=== PATIENT | male | born 1945 | race Caucasian/White ===

== ENCOUNTER → 2023-09-16 09:02 | Outpatient (REF) | payer MEDICARE, OTHER, SELFPAY | LOC: WDC 09:02 | PROVIDERS: ATTENDING PHYSICIAN Nurse Practitioner Family; FAMILY PHYSICIAN Internal Medicine | DX: N63.21 Unspecified lump in the left breast, upper outer quadrant (principal); N63.11 Unspecified lump in the right breast, upper outer quadrant | CPT/HCPCS: 36415; 76642; 77062; 77066; 84146 ==

== ENCOUNTER → 2023-09-23 08:08 | Outpatient (REF) | payer MEDICARE, OTHER, SELFPAY | LOC: RAD 08:08 | PROVIDERS: ATTENDING PHYSICIAN Nurse Practitioner Family; FAMILY PHYSICIAN Internal Medicine | DX: R07.89 Other chest pain (principal) | CPT/HCPCS: 71046; 93005 ==

== ENCOUNTER → 2023-09-30 07:27 | Outpatient (REF) | payer MEDICARE, OTHER, SELFPAY | LOC: RCS 07:27 | PROVIDERS: ATTENDING PHYSICIAN Nurse Practitioner Family; FAMILY PHYSICIAN Internal Medicine | DX: N63.11 Unspecified lump in the right breast, upper outer quadrant (principal); N63.21 Unspecified lump in the left breast, upper outer quadrant; R07.89 Other chest pain | CPT/HCPCS: 93017; 93350 ==

== ENCOUNTER → 2023-10-27 06:55 | Outpatient (REF) | payer MEDICARE, OTHER, SELFPAY | LOC: RSP 06:55 | PROVIDERS: ATTENDING PHYSICIAN Nurse Practitioner Family; FAMILY PHYSICIAN Internal Medicine | DX: R93.89 Abnormal findings on diagnostic imaging of other specified body structures (principal); R05.3 Chronic cough; J44.9 Chronic obstructive pulmonary disease, unspecified | CPT/HCPCS: 94727; 94729; 88738; 94010 ==

== ENCOUNTER → 2023-11-12 07:24 | Outpatient (REF) | payer MEDICARE, OTHER, SELFPAY ==
[2023-11-12 08:15] LABS: % Basophils 0.9 % (0-2); % Eosinophils 5.2 % (0-6); % Immature Granulocytes 0.4 % (0-0.5); % Lymphocytes 27.4 % (20.5-51.1); % Monocytes 9.5 % (1.7-9.3); % Neutrophils 56.6 % (42.2-75.2); Absolute Basophils 0.1 10^3/uL (0-0.2); Absolute Eosinophils 0.4 10^3/uL (0-0.7); Absolute Lymphocytes 2.1 10^3/uL (1.2-3.4); Absolute Monocytes 0.7 10^3/uL (0.1-0.6); Absolute Neutrophils 4.3 10^3/uL (1.4-6.5); Hematocrit 41.1 % (39.0-52.0); Mean Corp Hgb Conc. 36.5 g/dL (33.0-37.0); Mean Corpuscular Hgb 32.2 pg (27.0-31.0); Mean Corpuscular Volume 88.2 fL (80.0-94.0); Mean Platelet Volume 9.6 fL (7.4-10.4); Nucleated Red Blood Cells % 0 % (-); Platelet Count 172 10^3/uL (130-400); Red Blood Cell Count 4.66 10^6/uL (4.70-6.10); Red Cell Dist. Width 11.9 % (11.5-14.5); White Blood Cell Count 7.7 10^3/uL (4.8-10.8)
[2023-11-12 08:20] LABS: Urine Albumin Negative (Neg - Trace); Urine Bilirubin Negative (Negative); Urine Character Clear (Clear); Urine Color Yellow; Urine Glucose Negative (Negative); Urine Ketone Negative (Negative); Urine Leukocyte Negative (Negative); Urine Nitrite Negative (Negative); Urine Occult Blood Negative (Negative); Urine Specific Gravity 1.025 (<1.030); Urine Urobilinogen Negative (Neg - 1+)
[2023-11-12 09:26] LABS: PSA, Total - Screen 3.11 ng/ml (0.0-4.0); TSH 1.67 uIU/ml (0.47-4.68)
[2023-11-12 10:02] LABS: HDL Cholesterol 37 mg/dl; LDL Cholesterol, Calculated 70 mg/dl; Total Cholesterol 120 mg/dl (50-199); Triglyceride 66 mg/dl (10-149); Very Low Density Lipoprotein 13 mg/dl (0-30)
[2023-11-12 11:03] LABS: Glycohemoglobin (HgbA1c) 5.5 % (4.0-5.6)
== END ==
LOC: REG 07:24
PROVIDERS: ATTENDING PHYSICIAN Internal Medicine
DX: I10 Essential (primary) hypertension (principal); R78.2 Finding of cocaine in blood; K21.9 Gastro-esophageal reflux disease without esophagitis; N40.1 Benign prostatic hyperplasia with lower urinary tract symptoms; R73.01 Impaired fasting glucose; Z12.5 Encounter for screening for malignant neoplasm of prostate
CPT/HCPCS: 36415; 80061; 81003; 83036; 84443; 85025; G0103

== ENCOUNTER → 2023-12-31 13:22 | Outpatient (REF) | payer MEDICARE, OTHER, SELFPAY | LOC: HWRAD 13:22 | PROVIDERS: ATTENDING PHYSICIAN Internal Medicine | DX: N50.812 Left testicular pain (principal) | CPT/HCPCS: 76870; 93976 ==

== ENCOUNTER → 2024-01-15 07:41 | Outpatient (REF) | payer MEDICARE, OTHER, SELFPAY | LOC: REG 07:41 | PROVIDERS: ATTENDING PHYSICIAN Specialist; FAMILY PHYSICIAN Internal Medicine | DX: N39.0 Urinary tract infection, site not specified (principal) | CPT/HCPCS: 87086 ==

== ENCOUNTER 2024-10-18 18:04 | Emergency (ER) | payer MEDICARE, OTHER, SELFPAY ==
[2024-10-18 18:09] VITALS: BP 147/76
[2024-10-18 18:29] LABS: Hematocrit 41.1 % (39.0-52.0); Hemoglobin 15.0 g/dL (13.0-18.0); Mean Corp Hgb Conc. 36.5 g/dL (33.0-37.0); Mean Corpuscular Volume 89.7 fL (80.0-94.0); Nucleated Red Blood Cells % 0 % (-); Platelet Count 151 10^3/uL (130-400); Red Cell Dist. Width 12.0 % (11.5-14.5)
[2024-10-18 18:38] LABS: ALT (SGPT) 35 U/L (0-50); AST (SGOT) 36 U/L (17-59); Albumin 4.1 g/dl (3.5-5.0); Alkaline Phosphatase 71 U/L (38-126); Blood Urea Nitrogen 22 mg/dl (9-20); Calcium 9.4 mg/dl (8.4-10.2); Carbon Dioxide 26 mmol/L (22-30); Chloride 110 mmol/L (98-107); Glucose 132 mg/dl (70-99); Potassium 4.7 mmol/L (3.5-5.1); Sodium 141 mmol/L (135-145); Total Protein 6.7 g/dl (6.3-8.2); eGFR > 60.00
[2024-10-18 18:49] LABS: Troponin I < 0.012 ng/ml
[2024-10-18 19:26] VITALS: BP 145/97
[2024-10-18 19:29] VITALS: BMI 29.9
[2024-10-18 20:00] VITALS: BP 119/69
--- NOTE | 2024-10-18 20:10 | ED.GENMED ---
History of Present Illness
General
Chief Complaint: Chest Pain
Time Seen by Provider: 10/18/24 20:09
History of Present Illness
History of Present Illness:
79-year-old male history of hypertension, elevated cholesterol presenting with chest pressure for the past few months worsening today prompting ED arrival. Patient states that he was seen in urgent care prior to arrival, had abnormal EKG was sent
to the emergency department for further evaluation. Patient denies nausea, vomiting, shortness of breath or leg swelling. Patient states that he was able to walk his typical 2 mile walk with no issues this morning. Patient states that chest pain
is nonradiating, nonexertional, nonpleuritic. Patient states is unrelated to food. Patient reports history of hiatal hernia, states that he is scheduled to have a endoscopy on 10/26.
Past History
Past History
ED Past Medical History: HTN, Hypercholesterolemia, Other (enlarged prostate) and Other (skin CA, diverticulitis, arthritis, anxiety)
ED Past Surgical History: Orthopedic
Social History
Tobacco: Non-smoker
Personal:
Living: with family
Employment: Retired
Phy Exam
Physical Exam
Physical Exam:
General: Alert, no acute distress
Head: NCAT
Eyes: clear conjunctiva
Neck: supple
Cardiac: regular rate and rhythm, no murmur
Lungs: clear to auscultation bilaterally. No wheezes, rales, or rhonchi. Speaking full unlabored sentences. No respiratory distress.
Abdomen: soft, nondistended nontender. No rebound or guarding.
MSK: no lower extremity edema bilaterally. No deformity
Skin: warm, dry
Neuro: Alert and oriented x3. no focal deficits
Scores
Heart Score for Chest Pain Patients
STEMI patient?: No
History: Slightly or Non-Suspicious
ECG: Normal
Age: >/= 65 years
Risk Factors: 1 or 2 Risk Factors
Troponin: </= Normal Limit
Heart Score for Chest Pain Patients: 3
Heart Score Risk: 2.5% MACE over next 6 weeks
Course
Orders/Labs/Results
Orders:
Orders
10/18/24 18:08
Electrocardiogram (*1) Urgent
Reason for Study: Chest Pain
10/18/24 18:09
EKG- Treatment ONCE
10/18/24 18:20
Complete Blood Count/With Diff Urgent
Comprehensive Metabolic Panel Urgent
Troponin I Urgent
10/18/24 20:11
CXR2 [CR Chest - 2 Views ] Urgent
Comment:
Reason For Exam: chest pain
10/18/24 20:12
EKG- Treatment ONCE
10/18/24 21:20
Electrocardiogram (*1) Urgent
Reason for Study: Chest Pain
10/18/24 21:30
Troponin I Urgent
Abnormal Lab Results
10/18/24
18:20
RBC 4.58 L 10^6/uL
(4.70-6.10)
MCH 32.8 H pg
(27.0-31.0)
Absolute Monos (auto) 0.9 H 10^3/uL
(0.1-0.6)
Monocytes % 10.6 H %
(1.7-9.3)
Chloride 110 H mmol/L
(98-107)
BUN 22 H mg/dl
(9-20)
Glucose 132 H mg/dl
(70-99)
10/18/24 18:20
10/18/24 18:20
Vital Signs
Initial and Last Documented VS:
Initial Vital Signs
Temp Pulse Resp BP Pulse Ox
98.1 F 57 18 147/76 99
10/18/24 18:09 10/18/24 18:09 10/18/24 18:09 10/18/24 18:09 10/18/24 18:09
Last Documented Vital Signs
Temp Pulse Resp BP Pulse Ox
98.1 F 55 14 118/75 99
10/18/24 18:09 10/18/24 22:45 10/18/24 22:45 10/18/24 22:00 10/18/24 20:11
MDM/Problems Addressed
Differential Diagnosis Includes:
NSTEMI, symptomatic hiatal hernia, pancreatitis, pneumothorax
MDM/Problems Addressed:
Results reveiwed. Repeat EKG shows sinus bradycardia at 52bpm with [place] 186 QTc 424 RBBB, no acute ischemic changes, occasional PVCs. Chest x-ray shows no acute infiltrate or consolidation. Troponin negative x 2. Labs otherwise unremarkable.
Discussed results with patient at bedside. Higher suspicion for symptomatic hiatal hernia given symptoms been ongoing for months, unrelated to exertion. Stable for discharge home with GI/cardiology follow-up
*Pulse Oximetry
SaO2: 99
Oxygen Mode of Delivery: Room air
Patient hypoxic: no
*EKG
Interpreted by ED Provider?: Yes (EKG shows sinus bradycardia 54 bpm with W[place] 180 QTc 415, right bundle branch block similar to previous)
*Critical Care Note
Total Time (30-74mins, 75-104mins- exclusive of procedures): Not Applicable
ED Attending Note
-
Portions of this chart may have been created with voice recognition software.� Occasional wrong word or��sound alike� substitutions may have occurred due to the inherent limitations of voice recognition software.
Discharge Plan
Departure
Patient Disposition: Home (Routine Discharge)
Date of Disposition: 10/18/24
Time of Disposition: 22:41
Patient with high blood pressure during this ER visit?: Yes
Discharge Problem:
Chest pain
Instructions: Chest Pain CBC Follow Up
Prescriptions:
No Action
omeprazole 20 MG capsule,delayed release(DR/EC)
20 mg PO DAILY
beta carotene 25,000 UNIT capsule
25,000 unit PO DAILY
lisinopril 20 MG tablet
30 mg PO DAILY
atenolol 25 MG tablet
25 mg PO DAILY
aspirin 81 MG tablet,delayed release (DR/EC)
81 mg PO DAILY
tamsulosin 0.4 MG capsule
0.4 mg PO DAILY
simvastatin 20 MG tablet
20 mg PO DAILY
naproxen sodium [Aleve] 220 MG tablet
220 mg PO DAILY
finasteride 5 MG tablet
5 mg PO DAILY
saw palmetto-pumpkin seed oil 160 MG capsule
160 mg PO BID
omega 3-wac-cxu-fish oil [Fish Oil] 1 EACH capsule,delayed release(DR/EC)
1 ea PO DAILY
turmeric root extract 500 MG capsule
500 mg PO DAILY
calcium carb-D3-mag ox-zinc ox [Noel Mag Zinc Plus D3] 1 EACH tablet
1 ea PO DAILY
multivitamin with folic acid [Tab-A-Graima] 1 TABLET tablet
1 tab PO DAILY
Patient Comments:
centrum
saw-vit E-sod agk-mqi-dckb-pyg [Prostate Health] 1 EACH tablet
1 ea PO BID
psyllium husk [Metamucil Fiber (aspartame)] 1 PACKET powder in packet
1 tsp PO DAILY
Prostate Health Caplet
PO Daily
Patient Comments:
Prosta Genix
Referrals:
Tyshawn Roland DO [Family Provider, Internal Medicine]
Activity Restrictions/Additional Instructions:
Follow-up with cardiology and GI
Return to the emergency department for shortness of breath, chest pain with exertion or new/worsening symptoms
Interventions
Interventions:
*Risk Screen - Suicide Last Done: 10/18/24 18:09
*General Assessment Last Done: 10/18/24 19:30
*Neglect/Abuse Screening Last Done: 10/18/24 19:30
*ED- Fall Risk Assessment Last Done: 10/18/24 19:30
*ED COVID-19 Vaccine History Last Done: 10/18/24 19:30
*Nursing Disposition Last Done: 10/18/24 22:57
ED- Cardiac Assessment Last Done: 10/18/24 19:44
Discharge Date and Time
Discharge Date/Time: 10/18/24 23:01
Print Language: MALAYSIAN
[2024-10-18 21:37] VITALS: BP 115/69
[2024-10-18 22:00] VITALS: BP 118/75
[2024-10-18 22:12] LABS: Troponin I < 0.012 ng/ml
== END 2024-10-18 23:01 | disposition home or self-care (01) ==
LOC: EMR 18:04
PROVIDERS: Emergency Medicine; EMERGENCY PHYSICIAN Emergency Medicine; FAMILY PHYSICIAN Internal Medicine
DX: R07.89 Other chest pain (principal); I10 Essential (primary) hypertension; E78.00 Pure hypercholesterolemia, unspecified; I45.10 Unspecified right bundle-branch block
CPT/HCPCS: 99283; 71046; 80053; 84484; 85025; 93005

== ENCOUNTER 2024-10-26 06:16 | Day surgery (SDC) | payer MEDICARE, OTHER, SELFPAY ==
[2024-10-26 08:17] VITALS: BMI 29.1
[2024-10-26 08:18] VITALS: BP 130/73; BMI 29.1
[2024-10-26 10:03] VITALS: BP 111/68
[2024-10-26 10:15] VITALS: BP 113/76
[2024-10-26 10:30] VITALS: BP 120/80
== END 2024-10-26 10:40 | disposition home or self-care (01) ==
LOC: GI 06:16
PROVIDERS: ATTENDING PHYSICIAN Internal Medicine Gastroenterology
DX: K31.7 Polyp of stomach and duodenum (principal); K22.89 Other specified disease of esophagus; K86.9 Disease of pancreas, unspecified; R93.2 Abnormal findings on diagnostic imaging of liver and biliary tract
CPT/HCPCS: 43259; 43239; 88305

== ENCOUNTER → 2024-10-31 08:02 | Outpatient (REF) | payer MEDICARE, OTHER, SELFPAY | LOC: RCS 08:02 | PROVIDERS: ATTENDING PHYSICIAN Internal Medicine Cardiovascular Disease; FAMILY PHYSICIAN Internal Medicine | DX: R07.9 Chest pain, unspecified (principal) | CPT/HCPCS: 93225; 93226 ==

== ENCOUNTER → 2024-11-09 07:42 | Outpatient (REF) | payer MEDICARE, OTHER, SELFPAY ==
[2024-11-09 08:33] LABS: Hematocrit 41.9 % (39.0-52.0); Hemoglobin 14.7 g/dL (13.0-18.0); Mean Corp Hgb Conc. 35.1 g/dL (33.0-37.0); Mean Corpuscular Volume 90.9 fL (80.0-94.0); Nucleated Red Blood Cells % 0 % (-); Platelet Count 155 10^3/uL (130-400); Red Cell Dist. Width 12.0 % (11.5-14.5)
[2024-11-09 09:09] LABS: Urine Character Clear (Clear)
[2024-11-09 09:59] LABS: Blood Urea Nitrogen 26 mg/dl (9-20); Glucose 115 mg/dl (70-99)
[2024-11-09 10:00] LABS: ALT (SGPT) 34 U/L (0-50); AST (SGOT) 37 U/L (17-59); Albumin 3.9 g/dl (3.5-5.0); Alkaline Phosphatase 67 U/L (38-126); Calcium 9.5 mg/dl (8.4-10.2); Carbon Dioxide 29 mmol/L (22-30); Chloride 108 mmol/L (98-107); HDL Cholesterol 34 mg/dl; LDL Cholesterol, Calculated 62 mg/dl; Potassium 4.5 mmol/L (3.5-5.1); Sodium 140 mmol/L (135-145); Total Protein 6.4 g/dl (6.3-8.2); Very Low Density Lipoprotein 9 mg/dl (0-30); eGFR > 60.00
[2024-11-09 10:05] LABS: PSA, Total - Screen 3.26 ng/ml (0.0-4.0)
[2024-11-09 11:05] LABS: Glycohemoglobin (HgbA1c) 5.4 % (4.0-5.6)
== END ==
LOC: REG 07:42
PROVIDERS: ATTENDING PHYSICIAN Internal Medicine
DX: I10 Essential (primary) hypertension (principal); E78.2 Mixed hyperlipidemia; K21.9 Gastro-esophageal reflux disease without esophagitis; N40.1 Benign prostatic hyperplasia with lower urinary tract symptoms; R73.01 Impaired fasting glucose; Z12.5 Encounter for screening for malignant neoplasm of prostate
CPT/HCPCS: 36415; 80053; 80061; 81003; 83036; 85025; G0103

== ENCOUNTER → 2024-11-22 07:04 | Outpatient (REF) | payer MEDICARE, OTHER, SELFPAY | LOC: RCS 07:04 | PROVIDERS: ATTENDING PHYSICIAN Internal Medicine Cardiovascular Disease; FAMILY PHYSICIAN Internal Medicine | DX: R07.9 Chest pain, unspecified (principal) | CPT/HCPCS: 78452; 93017; A9500 ==

== ENCOUNTER → 2025-01-06 07:27 | Outpatient (REF) | payer MEDICARE, OTHER, SELFPAY | LOC: MRI 3T 07:27 | PROVIDERS: ATTENDING PHYSICIAN Internal Medicine Gastroenterology; FAMILY PHYSICIAN Internal Medicine | DX: K76.9 Liver disease, unspecified (principal) | CPT/HCPCS: 74183; A9575 ==